=== PATIENT | male | born 1970 | race Caucasian/White ===

== ENCOUNTER 2022-01-27 16:21 | Emergency (ER) | payer MEDICAID, SELFPAY ==
--- NOTE | ~2022-01-27 | CT_ITS ---
EXAMINATION: CT thoracic lumbar wo con DATE: 01/27/2022 17:04 INDICATION: fall, back pain . TECHNIQUE: Computed tomography (CT) of the thoracic and lumbar spine was performed without intravenou s contrast. Automated exposure control and iterative reconstruction technique were employed. The dose -length product was 2252.30 mGy-cm. COMPARISON: None. FINDINGS: Thoracic spine: Thoracic vertebral bodies are aligned. Thoracic vertebral body heights maintained. Mi ld multilevel degenerative disc changes and marginal osteophytosis. Lumbar spine: 5 nonrib-bearing lumbar-type vertebral bodies. Pedicles intact. 3 mm anterolisthesis of L5 on S1, otherwise normal vertebral body alignment. Vertebral body heights preserved. Multilevel mi ld disc space narrowing and marginal osteophytosis, including bridging lateral osteophyte formation. Bilateral L5 pars defects. IMPRESSION: 1. No acute fracture or traumatic malalignment detected in the thoracic or lumbar spine. Reviewed, dictated and finalized at location K. IMPRESSION: 1. No acute fracture or traumatic malalignment detected in the thoracic or lumb ar spine.
[2022-01-27 16:23] VITALS: BP 157/89; PULSE 106; RESP 18; TEMP 36.4; O2SAT 99
--- NOTE | 2022-01-27 16:29 | ED.FALL ---
HPI - Fall General Chief Complaint: Fall Stated Complaint: fall Time Seen by Provider: 01/27/22 16:29 Source: patient Mode of arrival: ambulatory Limitations: no limitations History of Present Illness HPI Narrative: Patient is a 51-year-old male with history of COPD, incarcerated hernia with repair in 2014, presenting to the emergency department for evaluation of back pain. Patient reports on Saturday evening he slipped in the driveway while walking, causing him to fall onto a cinder block. Patient reports the left side of his back struck the cinderblock with immediate pain. Patient reports severe, sharp pain that is exacerbated with movement since that time. He denies upper chest pain, lightheadedness, dizziness or any prodromal symptoms prior to the fall. He denies head trauma or loss of conscious. He is not on any anticoagulation. Patient denies saddle anesthesia, focal weakness or numbness. He report pain is mainly located in the left lower back. Pt denies any ripping or tearing sensation to the flank. He denies frontal abdominal pain. No nausea, vomiting. Related Data Allergies Allergy/AdvReac Type Severity Reaction Status Date / Time morphine Allergy Unknown Unknown Verified 01/27/22 16:35 tramadol Allergy Unknown Unknown Verified 01/27/22 16:35 Review of Systems Review of Systems: CONSTITUTIONAL: Denies fever, chills, or sweats. EYES: Denies visual changes, redness, or discharge. ENT: Denies rhinorrhea, congestion, sore throat, or otalgia. CARDIOVASCULAR: Denies chest pain, palpitations, or edema. RESPIRATORY: Denies cough or dyspnea. GASTROINTESTINAL: Denies abdominal pain, nausea, vomiting, or diarrhea. GENITOURINARY: Denies dysuria or hematuria. SKIN: Denies rash or itching. MUSCULOSKELETAL: Left back pain without other joint pain or myalgia NEUROLOGIC: Denies headache, numbness, or weakness. [facility] Past Medical History Medical History (Updated 01/27/22 @ 17:53 by Shavonne Ingram MD) Abdominal abscess COPD (chronic obstructive pulmonary disease) Incarcerated hernia Social History Social History Smoking status: Heavy tobacco smoker Alcohol intake: never Exam Narrative: GENERAL: Awake, alert, conversant HEAD: Normocephalic, atraumatic. EYES: PERRLA and EOMI. ENT: Nares clear, no rhinorrhea or epistaxis. Mucous membranes moist. NECK: Supple. No midline cervical spine tenderness. No stepoffs or deformities. CHEST: No respiratory distress, breathing even and non labored HEART: Regular rate, sinus rhythm ABDOMEN:Non distended, non tender Thorax: Left SI joint tenderness on exam, no midline thoracic or lumbar tenderness. EXTREMITIES: Normal range of motion. No edema. + Straight leg raise test on the left which reproduces pain. SKIN: Warm, dry, no rash.No ecchymoses. NEURO:No focal deficits. Alert and oriented x3. Intact EHL/FHL. Course Vital Signs Vital signs: Vital Signs Temperature 36.4 C 01/27/22 16:23 Pulse Rate 106 H 01/27/22 16:23 Respiratory Rate 18 01/27/22 16:23 Blood Pressure 157/89 H 01/27/22 16:23 Pulse Oximetry 99 01/27/22 16:23 Temperature 36.4 C 01/27/22 16:23 Pulse Rate 106 H 01/27/22 16:23 Respiratory Rate 18 01/27/22 16:23 Blood Pressure 157/89 H 01/27/22 16:23 Pulse Oximetry 99 01/27/22 16:23 MDM - Fall MDM Narrative Medical decision making narrative: Given History and Exam the patient appears to be at low risk for Spinal Cord Compression Syndrome, Vertebral Malignancy/Mets, Acute Spinal Fracture, Vertebral Osteomyelitis, Epidural Abscess, Infected or Obstructing Kidney Stone. Their presentation appears most likely to be secondary to non-emergent musculoskeletal etiology vs non-emergent disc herniation. Pain is reproducible, and patient has no other high risk factors such as history of malignancy, weight loss, infectious symptoms. ED Workup: Labwork for outpatient follow up at this time. Pt CT imaging is reassuring. Pt without oth
[2022-01-27] MEDS: ACETAMINOPHEN 500 MG TABLET 1000 MG PO (17:09)
[2022-01-27] MEDS: diazePAM (*CRX) 5 MG TABLET PO (17:09)
[2022-01-27] MEDS: KETOROLAC (*BKC) 60 MG/2 ML VIAL 30 MG IM (17:10)
== END 2022-01-27 18:10 | disposition home or self-care (01) ==
PROVIDERS: Emergency Provider Emergency Medicine; PCP Physician Assistant
DX: S33.5XXA Sprain of ligaments of lumbar spine, initial encounter (principal); W01.198A Fall on same level from slipping, tripping and stumbling with subsequent striking against other object, initial encounter; J44.9 Chronic obstructive pulmonary disease, unspecified; F17.200 Nicotine dependence, unspecified, uncomplicated
CPT/HCPCS: 72128; 72131; 96372; 99284; A9270; J1100; J1885

== ENCOUNTER 2022-06-18 19:02 | Emergency (ER) | payer OTHER, SELFPAY ==
--- NOTE | ~2022-06-18 | XR_ITS ---
EXAMINATION: XR ribs RT 2V w CXR 2V Exam Date/Time: 06/18/2022 20:15 CDT HISTORY: fall, R sided thoracic pain under nipple Comparison: 05/26/2017, 04/29/2017. RESULT: Lines, tubes, and devices: None. Lungs and pleura: Clear. Cardiomediastinal silhouette: Stable. Other: No acute osseous or upper abdominal finding. IMPRESSION: No acute cardiopulmonary process. No acute osseous finding in the right ribs Reviewed, dictated and finalized at location K.
[2022-06-18 19:29] VITALS: BP 134/88; PULSE 92; RESP 18; TEMP 36.5; O2SAT 97
[2022-06-18 19:52] VITALS: BP 144/82; PULSE 95; O2SAT 97
[2022-06-18 19:56] VITALS: O2SAT 98
--- NOTE | 2022-06-18 20:13 | ED.FALL ---
HPI - Fall General Chief Complaint: Fall <RICHARDSON Tomas Last Filed: 06/19/22 01:13> Stated Complaint: R. rib pain <RICHARDSON Tomas Last Filed: 06/19/22 01:13> Time Seen by Provider: 06/18/22 19:45 <RICHARDSON Tomas Last Filed: 06/19/22 01:13> History of Present Illness HPI Narrative: 51-year-old male here for evaluation of right-sided rib pain after a fall several days ago. Patient states that he was walking in his garage when he tripped on a slab of concrete, causing him to fall onto his right side. He denies head injury or loss of consciousness. Since then, he has been experiencing right-sided pain at the site, worse with deep breaths and movement of his thorax. He denies any difficulty breathing, hemoptysis, shortness of breath, chest pain. He has not attempted any pain medication for his symptoms. <RICHARDSON Tomas Last Filed: 06/19/22 01:13> Related Data Allergies/Adverse Reactions: Allergies Allergy/AdvReac Type Severity Reaction Status Date / Time morphine Allergy Unknown Unknown Verified 06/18/22 19:51 tramadol Allergy Unknown Unknown Verified 06/18/22 19:51 <RICHARDSON Tomas Last Filed: 06/19/22 01:13> Review of Systems Review of Systems: Gen.: Denies fevers or chills Eyes: Denies eye pain or visual change ENT: Denies congestion Respiratory: Denies shortness of breath or cough CV: Denies chest pain or palpitations GI: Denies abdominal pain nausea, emesis or diarrhea denies burning, urgency, frequency or hematuria Musculoskeletal: Reports right-sided rib pain. Denies back pain or muscle pain Neuro: Denies numbness, tingling, weakness or focal weakness Skin: Denies rash Except as documented, all other systems reviewed and negative <RICHARDSON Tomas Last Filed: 06/19/22 01:13> [facility] Past Medical History Medical History: Medical History Abdominal abscess COPD (chronic obstructive pulmonary disease) Incarcerated hernia <Bonnie Bender PA-C - Last Filed: 06/19/22 01:13> Social History Social History: Social History Smoking status: Heavy tobacco smoker Alcohol intake: never <Bonnie Bender PA-C - Last Filed: 06/19/22 01:13> Exam Narrative: APPEARANCE: Well appearing, no pain in distress, well-nourished. Head: Normocephalic and atraumatic. EYES: PERRLA/EOMI, conjunctivae clear NOSE: No nasal drainage EARS: External ear normal in appearance THROAT: Oropharynx is clear. Mucous membranes are moist. NECK: Supple. No adenopathy, no masses. RESPIRATORY: Airway patent, respirations nonlabored. Clear to auscultation bilaterally, no rales, rhonchi, wheezing. CARDIOVASCULAR: Regular rate and rhythm without murmurs, rubs, or gallops. ABDOMINAL: Normoactive bowel sounds. Soft, nontender, nondistended. No rebound tenderness or guarding. MUSCULOSKELETAL: No obvious deformity to chest. No flail chest noted. No overlying ecchymosis to area of pain. Patient is tender along the lateral aspects of the ribs 8/9 on the right side. NEURO: Normal speech. No focal neurologic deficits. SKIN: Skin is warm and dry. No rashes. PSYCHIATRIC: Normal affect/mood. 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 I agree with the assessment and plan as documented. <Gabriel Quezada MD - Last Filed: 06/20/22 12:39> Vital Signs Vital signs: Vital Signs Temperature 97.7 F 06/18/22 19:29 Pulse Rate 92 06/18/22 19:29 Respiratory Rate 18 06/18/22 19:29 Blood Pressure 134/88 06/18/22 19:29 Pulse Oximetry 97 06/18/22 19:29 Oxygen Delivery Room Air 06/18/22 19:29 Temperature 97.7 F 06/18/22 19:29 Pulse Rate 88 06/18/22 22:57 Respiratory Rate 18 06/18/22 22:57 Blood Pressure 150/80 H 06/18/22
[2022-06-18] MEDS: LIDOCAINE 5% PATCH 1 PATCH TRANSDERM (20:21)
[2022-06-18] MEDS: KETOROLAC 30 MG/ML VIAL (*BKC) IM (20:21)
[2022-06-18] MEDS: methocarbamoL 500 MG TABLET PO (20:21)
[2022-06-18] MEDS: ACETAMINOPHEN 325 MG TABLET 650 MG PO (22:39)
[2022-06-18 22:57] VITALS: BP 150/80; PULSE 88; RESP 18; O2SAT 96
== END 2022-06-18 23:05 | disposition home or self-care (01) ==
PROVIDERS: Emergency Provider Preventive Medicine Aerospace Medicine; PCP Physician Assistant
DX: R07.81 Pleurodynia (principal); J44.9 Chronic obstructive pulmonary disease, unspecified; F17.200 Nicotine dependence, unspecified, uncomplicated; W18.09XA Striking against other object with subsequent fall, initial encounter
CPT/HCPCS: 71046; 71100; 96372; 99283; A9270; J1885

== ENCOUNTER 2023-06-12 19:13 | Emergency (ER) | payer OTHER, SELFPAY ==
[2023-06-12 19:17] VITALS: BP 141/76; PULSE 104; RESP 15; TEMP 36.3; O2SAT 98
--- NOTE | 2023-06-13 00:43 | ED.GENADULT ---
HPI - General Adult General Chief complaint: Skin/Abscess/Foreign Body Stated complaint: hernia in groin area Time Seen by Provider: 06/13/23 00:35 History of Present Illness HPI narrative: This is a 52-year-old male presenting ED with chief complaint of hernia. Over last 3 weeks. Patient has noticed that he has had a left inguinal hernia. He has been able to reduce it. He has no abdominal distention, nausea vomiting or evidence of small-bowel obstruction. Afebrile. Patient has seen Dr. Antonio Nazario in the past. Related Data Allergies Allergy/AdvReac Type Severity Reaction Status Date / Time morphine Allergy Unknown Unknown Verified 06/18/22 19:51 tramadol Allergy Unknown Unknown Verified 06/18/22 19:51 [facility] Past Medical History Medical History Abdominal abscess COPD (chronic obstructive pulmonary disease) Incarcerated hernia Social History Social History Smoking status: Heavy tobacco smoker Alcohol intake: never Exam Narrative: APPEARANCE: No apparent distress. Head: atraumatic. EYES: EOMI, NOSE: Atraumatic NECK: Trachea midline RESPIRATORY: No increased rate of breathing, CTAB CARDIOVASCULAR: RRR, ABDOMINAL: Soft, nontender. No palpable hernia in the left inguinal region. MUSCULOSKELETAl: No obvious deformities NEURO: Alert. Moving 4/4 extremities SKIN:: Warm, dry. Normal color PSYCHIATRIC: Normal affect Course Vital Signs Vital signs: Vital Signs Temperature 97.3 F L 06/12/23 19:17 Pulse Rate 104 H 06/12/23 19:17 Respiratory Rate 15 06/12/23 19:17 Blood Pressure 141/76 H 06/12/23 19:17 Pulse Oximetry 98 06/12/23 19:17 Temperature 97.3 F L 06/12/23 19:17 Pulse Rate 104 H 06/12/23 19:17 Respiratory Rate 15 06/12/23 19:17 Blood Pressure 141/76 H 06/12/23 19:17 Pulse Oximetry 98 06/12/23 19:17 Medical Decision Making [facility] Narrative Medical decision making narrative: -Course: 52-year-old male presenting with a left inguinal hernia. He has been reducing it on his own. no concerning findings on exam such as nausea vomiting abdominal pain or evidence of bowel obstruction. Patient would like a referral to Antonio Nazaroi who has repaired his hernias in the past. Patient was discharged with return precautions for incarcerated/strangulated hernia. 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 -RX oxycodone 5 mg Vital Signs Vital Signs: Vital Signs Temperature 97.3 F L 06/12/23 19:17 Pulse Rate 104 H 06/12/23 19:17 Respiratory Rate 15 06/12/23 19:17 Blood Pressure 141/76 H 06/12/23 19:17 Pulse Oximetry 98 06/12/23 19:17 Temperature 97.3 F L 06/12/23 19:17 Pulse Rate 104 H 06/12/23 19:17 Respiratory Rate 15 06/12/23 19:17 Blood Pressure 141/76 H 06/12/23 19:17 Pulse Oximetry 98 06/12/23 19:17 Discharge Plan Discharge Clinical Impression: Hernia Patient Disposition: Home, Self-Care Condition: Stable Instructions: Antibiotic Form, Inguinal Hernia (ED) Additional Instructions: Please return to the emergency department if you are unable to reduce your hernia, you develop nausea vomiting, severe abdominal pain or are unable to pass gas. Prescriptions: New oxycodone 5 mg capsule 5 mg PO Q6H PRN (Reason: pain) Qty: 14 0RF No Action methocarbamol 500 mg tablet 500 mg PO HS Qty: 10 0RF lidocaine [Lidoderm] 5 % adhesive patch,medicated 1 patch topical DAILY Qty: 15 0RF Rx Instructions: leave on most painful area for up to 12 hrs i
[2023-06-13 00:59] VITALS: BP 138/82; PULSE 99; RESP 15; O2SAT 99
== END 2023-06-13 01:00 | disposition home or self-care (01) ==
PROVIDERS: Emergency Provider Emergency Medicine; PCP Physician Assistant
DX: K46.9 Unspecified abdominal hernia without obstruction or gangrene (principal); J44.9 Chronic obstructive pulmonary disease, unspecified; F17.200 Nicotine dependence, unspecified, uncomplicated
CPT/HCPCS: 99283

== ENCOUNTER 2023-08-26 10:31 | Outpatient (CLI) | payer OTHER, SELFPAY ==
--- NOTE | ~2023-08-26 | XR_ITS ---
Clinical Indication: Preoperative evaluation PA and lateral views of the chest: Comparison: 06/18/2022 Findings: The lungs are clear, without evidence of focal consolidation or pleural effusion. Cardiome diastinal silhouette is within normal limits. Fractures of the posterior right sixth and seventh ribs are present, somewhat age indeterminate. Probable chronic fracture deformity of the right fifth rib. . Impression: Clear lungs. Age-indeterminate fractures of the right fifth, sixth, seventh ribs, as above. Correlate for point te nderness or recent trauma. Reviewed, dictated and finalized at location . IC TRANSPORTATION INSPECTOR Impression: Clear lungs. Age-indeterminate fractures of the right fifth, sixth, seventh ribs, as above. Correlate for point tenderness or recent trauma.
--- NOTE | 2023-08-26 10:30 | ECG_ITS ---
Measurements Intervals [place] Rate: 89 P: 32 AR: 158 QRS: 15 QRSD: 89 T: 56 QT: 355 QTc: 432 Interpretive Statements SINUS RHYTHM NORMAL ECG NO PREVIOUS ECG AVAILABLE FOR COMPARISON Electronically Signed On 08-26-2023 17:14:54 [employer] by Gonzales Hunt M.D.
[2023-08-26 11:08] LABS: Basophils Percent Auto 0.4 % (0.2-1.2); Eosinophils Absolute Auto 0.4 K/mm3 (0-0.3); Eosinophils Percent Auto 4.2 % (0-4.4); Hemoglobin 12.9 g/dL (14.0-18.0); Immature Granulocyte Absolute 0.03 K/mm3 (0.00-0.031); Immature Granulocyte Percent A 0.3 % (0-0.5); Lymphocytes Absolute Auto 2.05 K/mm3 (0.9-3.2); Lymphocytes Percent Auto 20.7 % (18.3-44.2); Mean Corpuscular Hemoglobin 29.6 pg (26-34); Mean Corpuscular Volume 98.6 fl (80-100); Mean Platelet Volume 10.1 fl (7.4-10.4); Monocytes Absolute Auto 0.8 K/mm3 (0.1-0.6); Neutrophils Absolute Auto 6.6 K/mm3 (1.3-6.7); Neutrophils Percent Auto 66.4 % (45.5-73.1); Platelet Count Result 310 k/mm3 (150-375); Red Blood Count 4.36 M/mm3 (4.6-6.20); Red Cell Distribution Width 13.1 % (11.5-14.5); White Blood Count 9.9 K/mm3 (4.5-10.0)
[2023-08-26 11:15] LABS: Appearance Urine Clear (Clear); Bacteria Urine None Seen /hpf; Bilirubin Urine Negative (Negative); Blood Urine Negative (Negative); Color Urine Yellow (Yellow); Glucose Urine UA Negative (Negative); Ketones Urine Trace mg/dL (Negative); Leukocyte Esterase Ur Negative LEU/UL (NEGATIVE); Nitrate Urine Negative (Negative); Protein Urine Trace mg/dL (Negative); Specific Grav Ur 1.023 (1.001-1.035); Squamous Epithelial Cell Urine None seen /hpf (Few); WBC Urine 0-5 /hpf (0-3)
[2023-08-26 11:17] LABS: Add Urine Microscopic? YES
[2023-08-26 11:29] LABS: Anion Gap 5 mmol/L (8-16); Blood Urea Nitrogen 15 mg/dL (9-20); Calcium 9.1 mg/dL (8.4-10.2); Carbon Dioxide 32 mmol/L (22-30); Chloride 102 mmol/L (98-107); Estimated Glomerular Filt Rate > 60; Glucose 145 mg/dL (65-110); Sodium 139 mmol/L (137-145)
== END 2023-08-26 10:32 | disposition home or self-care (01) ==
LOC: ANHSURGERY 10:33
PROVIDERS: PCP Physician Assistant; Visit Provider Surgery
DX: Z01.818 Encounter for other preprocedural examination (principal); K40.20 Bilateral inguinal hernia, without obstruction or gangrene, not specified as recurrent
CPT/HCPCS: 36415; 71046; 80048; 81001; 85025; 86850; 86900; 86901; 93005

== ENCOUNTER 2023-08-28 00:11 | Day surgery (SDC) | payer OTHER, SELFPAY ==
[2023-08-22 14:52] VITALS: BMI 38.3
--- NOTE | 2023-08-22 14:57 | PC.NURSE ---
Report to the Outpatient Waiting Room, entrance under the green pavilion located off [facility], at time 6:00 on date 08/28/23. Planned Procedure Time: 8:00. Time changes happen often and if your time is changed the preop area will call you the afternoon before. - You and your visitor will be asked to self-screen and do not enter if you have any COVID symptoms. - A mask is optional within the hospital at this time. Patients may have clear liquids (water, carbonated beverages, clear teas, apple juice) until 3 hours prior to surgery (5:00) with a maximum of 20 ounces. - No food from midnight until time of surgery Take the following medications with a SIP of water the morning of surgery: NONE DO NOT STOP ANY OF YOUR OTHER PRESCRIPTION MEDICATIONS PRIOR TO SURGERY ?EXCEPT THE FOLLOWING Medications to discontinue per physician: N/A Date to take last dose: N/A Please no make-up, nail bangladeshi, hairspray, perfume, deodorant, or body powder the day of surgery. No jewelry (including any body piercings) or valuables the day of surgery, leave them at home. Please take a shower or bath the night before, or the morning of, surgery with an antibacterial soap. Wear comfortable, loose fitting clothing. - Jewelry must be removed prior to entering the operating room. Rings and piercings that are not removed may be cut off. - The hospital will not accept responsibility for valuables. - Please leave all valuables, including medications, at home the day of surgery. If you are going home after surgery, a licensed truck driver supervisor must drive you home. - NO public transportation without another adult if you receive anesthesia. - We recommend that an adult stay with you for 24 hours following discharge. - We also recommend that you do not drive, make important decision, drink alcoholic beverages, or take any drugs that were not prescribed by your health care provider for at least 24 hours after your discharge time. Follow any additional instructions given to you from your surgeon. If you or anyone in your household have experienced Covid symptoms in the past week, please notify your surgeon or the nurse liaison at the phone number below for possible testing. Telephone instructions given to PT - NYDIA HOWARD and asked if any additional questions and then verbalized understanding. Patient advised to call surgeon office or pre surgery nurse liaison [phone] if any additional questions.
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
== END 2023-08-28 06:50 | disposition home or self-care (01) ==
PROVIDERS: PCP Physician Assistant; Visit Provider Surgery
PROC: 8E0Y4CZ Robotic Assisted Procedure of Lower Extremity, Percutaneous Endoscopic Approach (ICD-10-PCS; CPT 49650; principal; 2023-08-28 08:00)
DX: K40.20 Bilateral inguinal hernia, without obstruction or gangrene, not specified as recurrent (principal)
CPT/HCPCS: 99212; G0463

== ENCOUNTER 2023-12-02 08:26 | Outpatient (CLI) | payer OTHER, SELFPAY ==
--- NOTE | 2023-12-02 08:31 | ECG_ITS ---
Measurements Intervals [place] Rate: 86 P: 60 [place]: 159 QRS: 18 QRSD: 98 T: 61 QT: 364 QTc: 436 Interpretive Statements SINUS RHYTHM EARLY PRECORDIAL R/S TRANSITION BASELINE ARTIFACT- I, II, III, AVR, AVL, AVF BORDERLINE ECG COMPARED TO ECG 08/26/2023 10:56:47 NO SIGNIFICANT CHANGES Electronically Signed On 12-02-2023 9:31:08 CDT by Juan M Dasilva D.O.
[2023-12-02 09:12] LABS: Basophils Percent Auto 0.5 % (0.2-1.2); Eosinophils Absolute Auto 0.3 K/mm3 (0-0.3); Hematocrit 44.3 % (42.0-52.0); Hemoglobin 13.5 g/dL (14.0-18.0); Immature Granulocyte Absolute 0.02 K/mm3 (0.00-0.031); Immature Granulocyte Percent A 0.2 % (0-0.5); Lymphocytes Absolute Auto 2.24 K/mm3 (0.9-3.2); Lymphocytes Percent Auto 27.3 % (18.3-44.2); Mean Corpuscular HGB Conc 30.5 g/dl (32-36); Mean Corpuscular Hemoglobin 29.2 pg (26-34); Mean Corpuscular Volume 95.7 fl (80-100); Mean Platelet Volume 10.2 fl (7.4-10.4); Monocytes Absolute Auto 0.6 K/mm3 (0.1-0.6); Monocytes Percent Auto 7.8 % (2.6-8.5); Neutrophils Percent Auto 61.2 % (45.5-73.1); Platelet Count Result 292 k/mm3 (150-375); Red Blood Count 4.63 M/mm3 (4.6-6.20); Red Cell Distribution Width 13.6 % (11.5-14.5); White Blood Count 8.2 K/mm3 (4.5-10.0)
[2023-12-02 09:26] LABS: Anion Gap 2 mmol/L (8-16); Blood Urea Nitrogen 19 mg/dL (9-20); Calcium 9.2 mg/dL (8.4-10.2); Carbon Dioxide 34 mmol/L (22-30); Chloride 103 mmol/L (98-107); Estimated Glomerular Filt Rate > 60; Glucose 103 mg/dL (65-110); Potassium 4.9 mmol/L (3.4-5.0); Sodium 139 mmol/L (137-145)
== END 2023-12-02 08:27 | disposition home or self-care (01) ==
LOC: ANHSURGERY 08:29
PROVIDERS: PCP Physician Assistant; Visit Provider Surgery
DX: Z01.818 Encounter for other preprocedural examination (principal); K40.20 Bilateral inguinal hernia, without obstruction or gangrene, not specified as recurrent
CPT/HCPCS: 36415; 80048; 85025; 86850; 86900; 86901; 93005

== ENCOUNTER 2023-12-04 00:21 | Day surgery (SDC) | payer OTHER, SELFPAY ==
[2023-11-27 10:26] VITALS: BMI 38.9
--- NOTE | 2023-11-27 10:28 | PC.NURSE ---
Report to the Outpatient Waiting Room, entrance under the green pavilion located off [facility], at time 6:00 on date 12/04/23. Planned Procedure Time: 8:00. Time changes happen often and if your time is changed the preop area will call you the afternoon before. - You and your visitor will be asked to self-screen and do not enter if you have any COVID symptoms. - A mask is optional within the hospital at this time. Patients may have clear liquids (water, carbonated beverages, clear teas, apple juice) until 3 hours prior to surgery (5:00) with a maximum of 20 ounces. - No food from midnight until time of surgery Take the following medications with a SIP of water the morning of surgery: NONE DO NOT STOP ANY OF YOUR OTHER PRESCRIPTION MEDICATIONS PRIOR TO SURGERY ?EXCEPT THE FOLLOWING Medications to discontinue per physician: N/A Date to take last dose: N/A Please no make-up, nail vincentian, hairspray, perfume, deodorant, or body powder the day of surgery. No jewelry (including any body piercings) or valuables the day of surgery, leave them at home. Please take a shower or bath the night before, or the morning of, surgery with an antibacterial soap. Wear comfortable, loose fitting clothing. - Jewelry must be removed prior to entering the operating room. Rings and piercings that are not removed may be cut off. - The hospital will not accept responsibility for valuables. - Please leave all valuables, including medications, at home the day of surgery. If you are going home after surgery, a licensed straddle bug driver must drive you home. - NO public transportation without another adult if you receive anesthesia. - We recommend that an adult stay with you for 24 hours following discharge. - We also recommend that you do not drive, make important decision, drink alcoholic beverages, or take any drugs that were not prescribed by your health care provider for at least 24 hours after your discharge time. Follow any additional instructions given to you from your surgeon. If you or anyone in your household have experienced Covid symptoms in the past week, please notify your surgeon or the nurse liaison at the phone number below for possible testing. Telephone instructions given to MARISABEL STAFFORD and asked if any additional questions and then verbalized understanding. Patient advised to call surgeon office or pre surgery nurse liaison [phone] if any additional questions.
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
[2023-12-04] VITALS (10 sets, daily range): BP systolic 119–171; BP diastolic 68–100; PULSE 70–101; RESP 15–22; TEMP 36.3–36.9; O2SAT 94–100
--- NOTE | ~2023-12-04 | CT_ITS ---
EXAMINATION: CTA chest PE abdomen pel DATE: 12/07/2023 13:18 INDICATION: Postoperative fever TECHNIQUE: Computed tomography angiography (CTA) of the chest, abdomen and pelvis was performed with 100 mL Omnipaque-350 intravenous contrast timed to evaluate the pulmonary arteries. Coronal maximum i ntensity projection 3D-reconstructions were created by the technologist. Automated exposure control a nd iterative reconstruction technique were employed. Exam dose: 3620.80 mGy-cm total exam DLP. COMPARISON: 08/26/2023 2 view chest 05/26/2017 CT abdomen pelvis 04/29/[address] CHEST FINDINGS: No thoracic aortic aneurysm or dissection. No hilar or mediastinal mass lesion or lymphadenopathy. Heart size is within normal range. No pericardial or pleural effusion. Bilateral dependent lower lobe atelectasis. Mild right apical linear scarring or atelectasis. Mild subcutaneous emphysema of the chest wall. No pneumothorax is detected. Healing posterolateral right eighth rib fracture. CT ABDOMEN PELVIS FINDINGS: Small sliding hiatal hernia. Normal morphology of the adrenal glands. The liver, gallbladder, spleen, pancreas are unremarkable. The gallbladder is unremarkable. No bile duct or pancreatic duct dilatation. 2.5 cm left renal cyst. There is patchy variable contrast enhancement of the kidneys; consider possible acute pyelonephritis. No urinary tract calculus or hydroureteronephrosis. Normal caliber of the abdominal aorta. No intraperitoneal or retroperitoneal or pelvic mass lesion or adenopathy or ascites. Normal appendix. Diverticulosis of colon; no CT evidence of diverticulitis. No bowel obstruction, bow el wall thickening, pneumatosis or intraperitoneal free air. There is subcutaneous emphysema of the abdominal wall and proximal thighs. Moderate anterior wedge compression fracture deformity of T11. Bilateral L5 pars interarticularis defects with grade 1 anterolisthesis at L5-S1. IMPRESSION: Subcutaneous emphysema of the chest and to a greater extent abdominal mcgee; no pneumoth orax Bilateral dependent lower lobe atelectasis Small sliding hiatal hernia Patchy contrast enhancement of both kidneys which may indicate acute pyelonephritis Normal appendix Diverticulosis of the colon; no evidence of diverticulitis T11 compression fracture deformity Bilateral L5 pars interarticularis defects with grade 1 anterolisthesis of L5-S1 Reviewed, dictated and finalized at [facility]. Reviewed, dictated and finalized at [facility]. IMPRESSION: Subcutaneous emphysema of the chest and to a greater extent abdomi nal mcgee; no pneumothorax Bilateral dependent lower lobe atelectasis Small sliding hiatal hernia Patchy contrast enhancement of both kidneys which may indicate acute pyelonephr itis Normal appendix Diverticulosis of the colon; no evidence of diverticulitis T11 compression fracture deformity Bilateral L5 pars interarticularis defects with grade 1 anterolisthesis of L5-S 1
[2023-12-04] MEDS: LACTATED RINGERS 1,000 ML 30 ML IV CONT ×3 (06:30→14:02)
--- NOTE | 2023-12-04 07:26 | WPDHPUPDATE1 ---
History and Physical Update Update Date/Time: 12/04/23 07:26 History and Physical has been reviewed, including an updated exam of the patient. There are NO changes in the patient's condition. Risks, benefits, and alternatives have been discussed and questions answered. Patient agrees to proceed with procedure.
[2023-12-04] MEDS: ACETAMINOPHEN 500 MG TABLET 1000 MG PO (08:00)
[2023-12-04] MEDS: KETOROLAC 15 MG/ML VIAL (*BKC) IV PUSH (08:00)
--- NOTE | 2023-12-04 08:04 | WPDANESEPPF ---
Anes - Initial Pre Proc Eval Procedure: Operation Date: 12/04/23 08:00 Proposed Procedures p Robotic Laparoscopic Bilateral Inguinal Hernia Repair with Mesh - Antonio Nazario MD Date/Time: 12/04/23 08:04 Surgeon: Antonio Nazario MD Pre Op Diagnosis: bilat inguinal hernia Patient Data Age: 53 Gender: M Height: 1.79 m Weight: 126.7 kg Last Vital Signs Temp 98.5 F 12/04/23 07:55 Pulse 100 12/04/23 07:55 Resp 18 12/04/23 07:55 BP 171/100 H 12/04/23 07:55 Pulse Ox 100 12/04/23 07:55 O2 Del Method Room Air 12/04/23 07:55 Allergies Allergy/AdvReac Type Severity Reaction Status Date / Time morphine Allergy Unknown Unknown Verified 12/04/23 07:54 tramadol AdvReac Unknown Nausea Verified 12/04/23 07:54 Home Medications Medication Instructions Recorded Confirmed Type lisinopril 30 mg tablet 30 mg PO DAILY 06/27/23 12/04/23 History Patient hx anesthesia problems: none Family hx anesthesia problems: none Results Review: All pre-operative results and documents have been reviewed as part of the pre-operative evaluation. [facility] Past Medical History Medical History Abdominal abscess Hypertension Incarcerated hernia Surgical History Surgical History History of incisional hernia repair Incarcerated incisional hernia repair with mesh 2014 Social History Social History Smoking packs per day: 0.5 Smoking cigarettes per day: 10.0 Years smoked: 35 Smoking pack-years: 17.50 Smoking status: Current every day smoker Tobacco type: cigarettes Alcohol intake: former Substance use: former Substance use type: marijuana Living arrangements: with family Occupation/Education: retired Spiritual care concerns: No Anes - Eval Final PreProcedure Day of Procedure 12/04/23 08:04 Patient weight: obese Heart: regular rate and rhythm Lungs: clear to auscultation Airway: Mallampati scale class III (poor dentition) Neurological: alert and oriented Last oral intake: >/= 8 hours ASA classification: III Emergent: no Anesthetic plan: proceed Anesthesia type and monitoring: general ETT and standard monitoring Results Review: All pre-operative results and documents have been reviewed as part of the pre-operative evaluation. Informed Consent: The patient's anesthetic plan and its attendant risks and benefits were discussed with the patient/family/POA. Questions were solicited and answers provided to the satisfaction of the patient/family/POA.
[2023-12-04] MEDS: ceFAZolin 3 GM/D5W 100 ML 100 ML IVPB (08:34)
[2023-12-04] MEDS: BUPIVACAINE/EPINEPHRINE 0.5% 30 ML VIAL INFILTRATE (09:21)
[2023-12-04] MEDS: ceFAZolin SODIUM 1 GM VIAL 3 GM IV PUSH (11:41)
[2023-12-04] MEDS: fentaNYL CITRATE INJ (*CRX) 100 MCG/2 ML VIAL 25 MCG IV PUSH ×4 (14:18→15:06)
--- NOTE | 2023-12-04 14:26 | W.PM.PROC2 ---
Procedure Note - Detailed Date of Procedure 12/04/23 Pre-op Diagnosis bilat inguinal hernia Post-op Diagnosis Same (Bilateral inguinal hernias, extensive abdominal adhesions) Procedure Performed Laparoscopic adhesiolysis, robotic laparoscopic adhesiolysis, robotic repair bilateral inguinal hernias with mesh Surgeon Antonio Nazario MD Director Of Outreach Heriberto CARVER Anesthesia General and Local Indications Patient presented to the office last fall with complaints of a left inguinal bulge and discomfort. His exam showed bilateral inguinal hernias. Patient is taken to surgery now for robotic laparoscopic repair of bilateral inguinal hernias Findings There were extensive, difficult adhesions to the anterior abdominal wall from patient's previous surgeries. The mesh from the incarcerated incisional hernia repair done laparoscopically in 2014 was intact but had both omental and small-bowel adhesions. About 90 minutes of the 3-1/2 hour surgery or is spent with the adhesiolysis. Initially, we did this with straight laparoscopy to gain access to the peritoneal cavity and take down primarily omental adhesions. When we had completed this to the point that we could place our robotic trocars, the rest of the adhesiolysis was performed with robotic laparoscopic technique which was considerably safer due to better visualization. The lower abdomen also had small bowel adhesed to the mesh and it was fortunate that this was the area that could be done robotically. The hernia repairs were more difficult as the lower aspect of the mesh was right on the border of where the peritoneal flaps were to be developed. Patient is a long-term smoker and is tissue integrity for the hernia repairs was poor. The left inguinal hernia was an indirect hernia with sigmoid colon in the inguinal canal. The right inguinal hernia was a direct inguinal hernia but had a lipoma of the cord as well. Description of Procedure Patient was taken to surgery and induced into general anesthesia. The abdomen was prepped and draped. Initial trocar was placed in the left subcostal position somewhat laterally. This was then applied Medical 5 mm trocar placed under direct visualization. We were able to gain access to the peritoneal cavity and insufflated the abdomen to 15 cm. Numerous omental adhesions were very close to this trocar. In epigastric trocar was placed under direct visualization. This was another 5 mm trocar. A right upper quadrant 5 mm trocar was placed under direct visualization as well. We then used the epigastric and left-sided trocars to begin the adhesiolysis. This was done with sharp dissection and cautery only when needed. The upper aspect of the adhesiolysis was really only omentum with no adherent bowel noted. About the level of the umbilicus we began running into omental and small-bowel adhesions. The small bowel was adherent to the previously placed mesh. I then placed the 8 mm robotic trocars under direct visualization. We then brought the robot into the field. Patient was placed in steep Trendelenburg. The robotic arms were docked and the camera was placed and targeted. The operating instruments were then positioned appropriately. We started where the small bowel adhesions were particularly dense in the lower abdomen. I then broke scrub and went to the robotic console. As mentioned above, the improve visualization as well as ease of instrument use made freeing these small bowel adhesions to mesh much safer. Many small bowel adhesions were still present and were taken down robotically. Eventually all the adhesions were taken down and we could visualize the bilateral inguinal hernias. Inspecting the inguinal canals, it was apparent that the right inguinal hernia was a direct hernia. The left inguinal hernia was a large indirect hernia with sigmoid colon in the inguinal canal. I was able to reduce the sigmoid colon back into the abdomen but a portion of it was adherent to the pe
--- NOTE | 2023-12-04 15:25 | ADMGEN ---
This patient, Abraham Johnston, was admitted to Medical Room 346-01. Patient/family oriented to hospital policies and general routines including ID bracelet, bed and alarms, visiting hours, pain management, procedures, bathroom and other care routines, personal items, smoking policy, room service/diet, and visiting hours. Information on how to activate the Rapid Response Team has been discussed. Patient/Family are encouraged to report perceived risks to care and to ask questions if they do not understand what they are told or what they should do.
[2023-12-04] MEDS: NICOTINE (*PBKC) 14 MG PATCH 1 PATCH TRANSDERM (15:39)
[2023-12-04] MEDS: LACTATED RINGERS 1,000 ML 80 ML IV CONT (15:40)
[2023-12-04] MEDS: oxyCODONE/ACETAMINOPHEN (*CRX) 10-325 MG TABLET 1 TAB PO ×2 (16:39→22:50)
[2023-12-04] MEDS: HYDROmorphone HCL INJ (*CRX) 1 MG/ML SYR IV PUSH (20:24)
[2023-12-04] MEDS: ENOXAPARIN 30 MG/0.3 ML SYRINGE SUB-Q (20:26)
[2023-12-04] MEDS: FAMOTIDINE 20 MG/2 ML VIAL IV PUSH (20:27)
[2023-12-05 00:18] VITALS: BP 157/88; PULSE 104; RESP 20; TEMP 37; O2SAT 95
[2023-12-05] MEDS: HYDROmorphone HCL INJ (*CRX) 1 MG/ML SYR IV PUSH ×3 (01:59→20:14)
[2023-12-05] MEDS: LACTATED RINGERS 1,000 ML 80 ML IV CONT (04:10)
[2023-12-05 04:16] VITALS: BP 148/81; PULSE 92; RESP 18; TEMP 36.6; O2SAT 100
[2023-12-05] MEDS: oxyCODONE/ACETAMINOPHEN (*CRX) 10-325 MG TABLET 1 TAB PO ×3 (04:43→17:03)
[2023-12-05 06:20] LABS: Hematocrit 36.2 % (42.0-52.0); Hemoglobin 11.1 g/dL (14.0-18.0); Mean Corpuscular HGB Conc 30.7 g/dl (32-36); Mean Corpuscular Hemoglobin 29.6 pg (26-34); Mean Corpuscular Volume 96.5 fl (80-100); Mean Platelet Volume 10.3 fl (7.4-10.4); Platelet Count Result 264 k/mm3 (150-375); Red Blood Count 3.75 M/mm3 (4.6-6.20); Red Cell Distribution Width 14.1 % (11.5-14.5); White Blood Count 9.1 K/mm3 (4.5-10.0)
[2023-12-05 06:39] LABS: Anion Gap 5 mmol/L (4-12); Blood Urea Nitrogen 22 mg/dL (9-20); Calcium 8.3 mg/dL (8.4-10.2); Carbon Dioxide 28 mmol/L (22-30); Chloride 105 mmol/L (98-107); Estimated CRCL calculation 93 ml/min; Estimated Glomerular Filt Rate > 60; Glucose 133 mg/dL (65-110); Potassium 3.9 mmol/L (3.4-5.0); Sodium 138 mmol/L (137-145)
--- NOTE | 2023-12-05 07:46 | WPDANESPN ---
Anes - Prog Note Post-Op Date/Time: 12/05/23 07:46 Cardiovascular status: normal Respiratory status: normal Airway patency: baseline Mental status: baseline Post-Op hydration status: normal Vital Signs: Last Vital Signs Temp 36.6 C 12/05/23 04:16 Pulse 92 12/05/23 04:16 Resp 18 12/05/23 04:16 BP 148/81 H 12/05/23 04:16 Pulse Ox 100 12/05/23 04:16 O2 Del Method Room Air 12/04/23 15:46 O2 Flow Rate 8 12/04/23 14:00 Pain Score (VAS): 11/16 I/O: Intake & Output 12/04/23 12/04/23 12/05/23 15:59 23:59 07:59 Intake Total 708 501 1432 Output Total 75 225 600 Balance 325 15 900 Laboratory Tests 12/05/23 05:44 12/05/23 05:44 12/05/23 05:44 WBC 9.1 RBC 3.75 L Hgb 11.1 L Hct 36.2 L MCV 96.5 MCH 29.6 MCHC 30.7 L RDW 14.1 Plt Count 264 MPV 10.3 Sodium 138 Potassium 3.9 Chloride 105 Carbon Dioxide 28 Anion Gap 5 L BUN 22 H Creatinine 1.10 Estim Creat Clear Calc 93 Estimated GFR > 60 Glucose 133 H Calcium 8.3 L Post-procedural complaints: none Patient Feedback: Patient satisfied with anesthetic care.
--- NOTE | 2023-12-05 07:51 | WPDANESPN ---
Anes - Prog Note Post-Op Date/Time: 12/05/23 07:51 Cardiovascular status: normal Respiratory status: normal Airway patency: baseline Mental status: baseline Post-Op hydration status: normal Vital Signs: Last Vital Signs Temp 36.6 C 12/05/23 04:16 Pulse 92 12/05/23 04:16 Resp 18 12/05/23 04:16 BP 148/81 H 12/05/23 04:16 Pulse Ox 100 12/05/23 04:16 O2 Del Method Room Air 12/04/23 15:46 O2 Flow Rate 8 12/04/23 14:00 Pain Score (VAS): 10/19 I/O: Intake & Output 12/04/23 12/04/23 12/05/23 15:59 23:59 07:59 Intake Total 162 970 0825 Output Total 75 225 600 Balance 325 15 900 Laboratory Tests 12/05/23 05:44 12/05/23 05:44 12/05/23 05:44 WBC 9.1 RBC 3.75 L Hgb 11.1 L Hct 36.2 L MCV 96.5 MCH 29.6 MCHC 30.7 L RDW 14.1 Plt Count 264 MPV 10.3 Sodium 138 Potassium 3.9 Chloride 105 Carbon Dioxide 28 Anion Gap 5 L BUN 22 H Creatinine 1.10 Estim Creat Clear Calc 93 Estimated GFR > 60 Glucose 133 H Calcium 8.3 L Post-procedural complaints: none Patient Feedback: Patient satisfied with anesthetic care.
[2023-12-05] MEDS: FAMOTIDINE 20 MG/2 ML VIAL IV PUSH ×2 (08:12→20:14)
[2023-12-05] MEDS: ENOXAPARIN 30 MG/0.3 ML SYRINGE SUB-Q ×2 (08:12→20:14)
[2023-12-05] MEDS: NICOTINE (*PBKC) 14 MG PATCH 1 PATCH TRANSDERM (08:12)
[2023-12-05] MEDS: lisinopriL 10 MG TABLET 30 MG PO (08:12)
[2023-12-05 09:37] VITALS: BP 150/87; PULSE 81; RESP 18; TEMP 36.6; O2SAT 99
[2023-12-05 14:00] VITALS: BP 131/76; PULSE 88; RESP 20; TEMP 36.5; O2SAT 94
--- NOTE | 2023-12-05 14:45 | PM.PNGS ---
Progress Note: A&P Assessment and Plan (1) Bilateral inguinal hernia: Qualifiers: Obstruction and gangrene presence: without obstruction or gangrene Recurrence: non-recurrent Qualified Code(s): K40.20 - Bilateral inguinal hernia, without obstruction or gangrene, not specified as recurrent Code(s): K40.20 - Bilateral inguinal hernia, without obstruction or gangrene, not specified as recurrent Status: Acute Assessment and Plan: Patient doing well postop day 1. Transition to oral analgesics. Increase activity and walk the halls today. Possibly discharge home tomorrow if he continues to improve. Plan I have discussed the patient's case and plan of care with Dr. Nazario. Subjective Subjective Date/Time Seen: 12/05/23 09:45 Patient reports: tolerating a regular diet, voiding w/o difficulty, flatus and no bowel movement Interval history: Patient doing well this morning. He is tolerating activity and has walked in the halls. He reports incisional soreness that he expected, but no significant other abdominal pain. Denies nausea or vomiting. No issues or complaints at this time. Exam Const: General: comfortable and no acute distress GI: Inspection: non-distended and incision (incisions dry and intact) GI Palp: Yes Soft to palpation, Yes Tenderness to palpation present (GI) (incisional) and No Guarding due to palpation present (GI) Auscultation: normal bowel sounds Neuro: General: moves all extremities and no focal motor deficits Extrem: General: no calf tenderness and no edema Psych: Mental Status: mental status grossly normal Insight: Good insight present (Psych) Objective Data Vital Signs Vital Signs: Vital Signs - 24 hr 12/04/23 15:00 12/04/23 15:46 12/04/23 15:00 Temperature 98.1 F Pulse Rate 91 87 Respiratory Rate 18 16 Blood Pressure 137/77 143/83 H Pulse Oximetry 95 96 Oxygen Delivery Room Air Room Air 12/04/23 15:54 12/04/23 16:54 12/04/23 20:33 Temperature 98.2 F 98.2 F 97.9 F Pulse Rate 80 70 101 H Respiratory Rate 16 16 16 Blood Pressure 150/87 H 153/87 H 140/74 Pulse Oximetry 95 95 94 Oxygen Delivery 12/05/23 00:18 12/05/23 04:16 12/05/23 09:37 Temperature 98.6 F 97.9 F 97.9 F Pulse Rate 104 H 92 81 Respiratory Rate 20 18 18 Blood Pressure 157/88 H 148/81 H 150/87 H Pulse Oximetry 95 100 99 Oxygen Delivery 12/05/23 08:11 12/05/23 14:00 Temperature 97.7 F Pulse Rate 88 Respiratory Rate 20 Blood Pressure 131/76 Pulse Oximetry 94 Oxygen Delivery Room Air Intake/Output Intake/Output: Intake & Output 12/02/23 12/03/23 12/04/23 12/05/23 23:59 23:59 23:59 23:59 Intake Total 640 1980 Output Total 300 600 Balance 340 1380 Meds/Results Medications: Active Medications Generic Name Dose Route Start Last Admin Trade Name Freq PRN Reason Stop Dose Admin Acetaminophen 500 mg 12/04/23 15:09 Acetaminophen 500 Mg Tablet PO Q6H PRN Mild Pain (1-3) or Fever Enoxaparin Sodium 30 mg 12/04/23 21:00 12/05/23 08:12 Enoxaparin 30 Mg/0.3 Ml Syringe SUB-Q 30 mg Q12HR DOUG Administration Famotidine 20 mg 12/04/23 21:00 12/05/23 08:12 Famotidine 20 Mg/2 Ml Vial IV PUSH 20 mg Q12HR DOUG Administration Hydromorphone HCl 1 mg 12/04/23 15:09 12/05/23 08:25 Hydromorphone Hcl Inj (*Crx) 1 Mg/Ml Syr IV PUSH 1 mg Q2H PRN Administration Pain Rated 7-10 Hydromorphone HCl 0.5 mg 12/04/23 15:09 Hydromorphone Hcl Inj (*Crx) 1 Mg/Ml Syr IV PUSH Q2H PRN Pain Rated 4-6 Lactated Ringer's 1,000 mls @ 80 mls/hr 12/04/23 15:09 12/05/23 04:10 Lr - Lactated Ringers Iv IV CONT 80 mls/hr .[id number] DOUG Administration Ibuprofen 800 mg in 200 mls @ 400 mls/hr 12/04/23 15:09 Caldolor 800 Mg/200 Ml IVPB Q6H PRN Pain Rated 1-3 Lisinopril 30 mg 12/05/23 09:00 12/05/23 08:12 Lisinopril 10 Mg Tablet PO 30 mg DAILY DOUG Administration Naloxone HCl 0.1 mg 03
[2023-12-05] MEDS: ONDANSETRON INJ 4 MG/2 ML VIAL IV PUSH ×2 (18:14→22:34)
[2023-12-05 18:44] VITALS: BP 129/70; PULSE 92; RESP 18; TEMP 36.4; O2SAT 93
[2023-12-05 19:44] VITALS: BP 127/64; PULSE 94; RESP 18; TEMP 36.4; O2SAT 99
[2023-12-06 01:48] VITALS: BP 156/98; PULSE 110; RESP 20; TEMP 37.3; O2SAT 94
[2023-12-06] MEDS: IBUPROFEN IV 800 MG/200 ML 800 MG/200 ML BAG 400 MG IVPB (01:53)
[2023-12-06 04:20] VITALS: BP 152/74; PULSE 107; RESP 18; TEMP 37.3; O2SAT 93
[2023-12-06] MEDS: ONDANSETRON INJ 4 MG/2 ML VIAL IV PUSH ×2 (05:49→20:29)
[2023-12-06 06:03] LABS: Hematocrit 37.1 % (42.0-52.0); Mean Corpuscular HGB Conc 29.6 g/dl (32-36); Mean Corpuscular Hemoglobin 29.4 pg (26-34); Mean Corpuscular Volume 99.2 fl (80-100); Mean Platelet Volume 10.1 fl (7.4-10.4); Platelet Count Result 276 k/mm3 (150-375); Red Blood Count 3.74 M/mm3 (4.6-6.20); Red Cell Distribution Width 14.3 % (11.5-14.5)
[2023-12-06 06:18] LABS: Anion Gap 3 mmol/L (4-12); Blood Urea Nitrogen 17 mg/dL (9-20); Calcium 8.5 mg/dL (8.4-10.2); Carbon Dioxide 30 mmol/L (22-30); Chloride 103 mmol/L (98-107); Estimated CRCL calculation 102 ml/min; Estimated Glomerular Filt Rate > 60; Glucose 107 mg/dL (65-110); Potassium 4.4 mmol/L (3.4-5.0); Sodium 136 mmol/L (137-145)
[2023-12-06] MEDS: ENOXAPARIN 30 MG/0.3 ML SYRINGE SUB-Q ×2 (08:03→20:24)
[2023-12-06] MEDS: FAMOTIDINE 20 MG/2 ML VIAL IV PUSH (08:03)
[2023-12-06] MEDS: NICOTINE (*PBKC) 14 MG PATCH 1 PATCH TRANSDERM (08:03)
[2023-12-06] MEDS: lisinopriL 10 MG TABLET 30 MG PO (12:19)
[2023-12-06] MEDS: oxyCODONE/ACETAMINOPHEN (*CRX) 10-325 MG TABLET 1 TAB PO (12:21)
[2023-12-06 15:28] VITALS: BP 131/66; PULSE 95; RESP 19; TEMP 37; O2SAT 90
[2023-12-06] MEDS: FAMOTIDINE 20 MG TABLET PO (20:24)
[2023-12-06] MEDS: ACETAMINOPHEN 500 MG TABLET PO (20:31)
[2023-12-06 22:00] VITALS: O2SAT 93
[2023-12-06 22:30] VITALS: BP 146/94; PULSE 112; RESP 16; TEMP 38.1; O2SAT 94
[2023-12-06] MEDS: IBUPROFEN 600 MG TABLET PO (23:09)
[2023-12-07] VITALS (7 sets, daily range): BP systolic 119–161; BP diastolic 68–93; PULSE 91–101; RESP 18–20; TEMP 37.1–37.5; O2SAT 94–97
[2023-12-07 06:14] LABS: Hematocrit 37.6 % (42.0-52.0); Hemoglobin 11.2 g/dL (14.0-18.0); Mean Corpuscular HGB Conc 29.8 g/dl (32-36); Mean Corpuscular Hemoglobin 29.5 pg (26-34); Mean Corpuscular Volume 98.9 fl (80-100); Mean Platelet Volume 9.9 fl (7.4-10.4); Platelet Count Result 243 k/mm3 (150-375); Red Cell Distribution Width 14.3 % (11.5-14.5); White Blood Count 8.3 K/mm3 (4.5-10.0)
[2023-12-07 06:23] LABS: Anion Gap 3 mmol/L (4-12); Blood Urea Nitrogen 16 mg/dL (9-20); Calcium 8.7 mg/dL (8.4-10.2); Carbon Dioxide 35 mmol/L (22-30); Chloride 100 mmol/L (98-107); Estimated CRCL calculation 112 ml/min; Estimated Glomerular Filt Rate > 60; Glucose 115 mg/dL (65-110); Potassium 4.9 mmol/L (3.4-5.0); Sodium 138 mmol/L (137-145)
[2023-12-07] MEDS: NICOTINE (*PBKC) 14 MG PATCH 1 PATCH TRANSDERM (09:06)
[2023-12-07] MEDS: ENOXAPARIN 30 MG/0.3 ML SYRINGE SUB-Q ×2 (09:06→20:15)
[2023-12-07] MEDS: lisinopriL 10 MG TABLET 30 MG PO (09:06)
[2023-12-07] MEDS: FAMOTIDINE 20 MG TABLET PO ×2 (09:06→20:15)
--- NOTE | 2023-12-07 10:57 | PM.PNGS ---
Progress Note: A&P Assessment and Plan (1) Postoperative fever: Code(s): R50.82 - Postprocedural fever Status: Acute Assessment and Plan: Associated with #2, below. Also has tachycardia. Eating well and no acute abdomen. Bowel sounds are active. Feels to poorly to get out of bed. Usually sleeping when I come by to see him but does awaken. Could be atelectasis but patient very high risk for pneumonia, PE, other complications. Will get CTA of the chest as well as CT scan with contrast abdomen/pelvis. Has black and scrotum which on careful inspection looks to be ecchymosis. Patient admits he had been sitting on his scrotum while having a bowel movement on the commode. (2) Malaise and fatigue: Code(s): R53.81 - Other malaise; R53.83 - Other fatigue Status: Acute Assessment and Plan: As above. Will get testing for COVID influenza and RSV. (3) Bilateral inguinal hernia: Qualifiers: Obstruction and gangrene presence: without obstruction or gangrene Recurrence: non-recurrent Qualified Code(s): K40.20 - Bilateral inguinal hernia, without obstruction or gangrene, not specified as recurrent Code(s): K40.20 - Bilateral inguinal hernia, without obstruction or gangrene, not specified as recurrent Status: Chronic Assessment and Plan: Wounds are healing appropriately. Abdomen is tender but he had multiple trocar sites and an extensive adhesiolysis of the abdomen before we could proceed with bilateral inguinal hernia repair. Aside from the scrotal bruising there is really no scrotal edema and no hematoma seroma in either groin. No ecchymosis of the penis or either groin. Clinically, abdomen and hernia repair appear to be normal postoperative condition. (4) Tobacco use: Code(s): Z72.0 - Tobacco use Status: Chronic Assessment and Plan: On nicotine patch. Chronic tobacco use and lung disease increases risk of pulmonary complications. (5) History of incisional hernia repair: Code(s): Z98.890 - Other specified postprocedural states; Z87.19 - Personal history of other diseases of the digestive system Status: Chronic Assessment and Plan: This and prior surgeries were the source of many anterior abdominal wall adhesions and required adhesiolysis laparoscopically before inguinal hernia repair could be performed. Please see operative note. (6) BMI 39.0-39.9,adult: Code(s): Z68.39 - Body mass index [BMI] 39.0-39.9, adult Status: Chronic Subjective Subjective Date/Time Seen: 12/07/23 10:57 Post Op day: 3 Patient reports: tolerating a regular diet, bowel movement, nausea and fever Interval history: Patient feels worse last night and today. Has had chills as well as been too warm. Does not feel good enough to get out of bed. No particular areas of pain. Does have some nausea but not right now. Has body aches and malaise. Review of Systems Review of Systems: All systems reviewed & are unremarkable except as noted in HPI and below (HPI) Exam Narrative: Patient had fever of 38.1 about 10:30 last night. Nurse reports more fever this morning. Const: General: cooperative, comfortable, no acute distress, lethargic, tired appearing (Somnolent) and obese Orientation/consciousness: patient oriented x3, No confusion and Other orientation findings (Somnolent, tired appearing) Chest: Chest palpation & inspection: normal inspection of the chest, normal palpation of entire chest wall, no crepitus, no localized rib tenderness and No rash Resp: Effort & Inspection: normal respiratory effort, able to speak in complete sentences, not labored and symmetric chest movement Auscultation: clear to auscultation bilaterally, no rales, no rhonchi, no wheezes and diminished lung sounds bilateral in the lower lung floyd Cardio: Jugular venous distension: no JVD Rate: tachycardic Rhythm: regular rhythm Heart sounds: no gallops, no murmurs and n
[2023-12-07 13:03] LABS: Influenza A QL RT-PCR Negative (Negative); Influenza B QL RT-PCR Negative (Negative); RSV RNA, RT-PCR Negative (Negative); SARS-CoV-2 RNA PCR Negative (Negative)
[2023-12-07] MEDS: oxyCODONE/ACETAMINOPHEN (*CRX) 5-325 MG TABLET 1 TABLET PO ×2 (15:13→23:29)
[2023-12-07 15:20] LABS: Appearance Urine Clear (Clear); Bacteria Urine None Seen /hpf; Bilirubin Urine Negative (Negative); Blood Urine Non-Hemolyzed Trace (Negative); Color Urine Yellow (Yellow); Glucose Urine UA Negative (Negative); Ketones Urine Negative (Negative); Leukocyte Esterase Ur Negative LEU/UL (Negative); Nitrate Urine Negative (Negative); Non Pathogenic Casts 0-2; Protein Urine Negative (Negative); RBC Urine 0-2 /hpf (0-2); Squamous Epithelial Cell Urine None Seen /hpf (Few); WBC Urine 0-5 /hpf (0-3)
[2023-12-07 15:24] LABS: Add Urine Microscopic? YES; Specific Grav Ur 1.059 (1.001-1.035)
[2023-12-08 05:18] VITALS: BP 145/83; PULSE 86; RESP 18; TEMP 37; O2SAT 93
[2023-12-08] MEDS: FAMOTIDINE 20 MG TABLET PO (08:45)
[2023-12-08] MEDS: NICOTINE (*PBKC) 14 MG PATCH 1 PATCH TRANSDERM (08:45)
[2023-12-08] MEDS: lisinopriL 10 MG TABLET 30 MG PO (08:45)
[2023-12-08] MEDS: ENOXAPARIN 30 MG/0.3 ML SYRINGE SUB-Q (08:45)
[2023-12-08] MEDS: oxyCODONE/ACETAMINOPHEN (*CRX) 5-325 MG TABLET 1 TABLET PO (08:47)
[2023-12-08 12:29] VITALS: O2SAT 97
== END 2023-12-08 14:08 | disposition home or self-care (01) ==
LOC: ANHSURGERY 06:02 → ANH3MED 15:12
PROVIDERS: Nurse Practitioner Family; PCP Physician Assistant; Visit Provider Surgery
PROC: 8E0Y4CZ Robotic Assisted Procedure of Lower Extremity, Percutaneous Endoscopic Approach (ICD-10-PCS; CPT 49650; principal; 2023-12-04 08:00)
DX: K40.20 Bilateral inguinal hernia, without obstruction or gangrene, not specified as recurrent (principal); K66.0 Peritoneal adhesions (postprocedural) (postinfection); J98.11 Atelectasis; I10 Essential (primary) hypertension; F17.210 Nicotine dependence, cigarettes, uncomplicated; F12.90 Cannabis use, unspecified, uncomplicated; E66.9 Obesity, unspecified; Z68.39 Body mass index [BMI] 39.0-39.9, adult; Z79.891 Long term (current) use of opiate analgesic; Z79.1 Long term (current) use of non-steroidal anti-inflammatories (NSAID); J95.89 Other postprocedural complications and disorders of respiratory system, not elsewhere classified; Z98.890 Other specified postprocedural states; K44.9 Diaphragmatic hernia without obstruction or gangrene
CPT/HCPCS: 49650; S2900; 36415; 71275; 74177; 80048; 81001; 85027; 87637; A9270; C1781; J0690; J1100; J1170; J1650; J1741; J1885; J2250; J2405; J2704; J3010; J7030; J7120; Q9967

== ENCOUNTER 2024-02-14 09:14 | Outpatient (CLI) | payer OTHER, MEDICAID, SELFPAY ==
--- NOTE | ~2024-02-14 | XR_ITS ---
Right Knee Technique: AP, lateral, and sunrise views were obtained. Clinical History: Arthroplasty Findings: No acute fracture or dislocation seen. Right knee arthroplasty in place. Soft tissues are u nremarkable. No joint effusion is seen. Impression: No acute reality. Right knee arthroplasty. Reviewed, dictated and finalized at location . Impression: No acute reality. Right knee arthroplasty.
== END 2024-02-14 09:15 ==
PROVIDERS: PCP Physician Assistant; Visit Provider Physician Assistant
DX: Z96.651 Presence of right artificial knee joint (principal)
CPT/HCPCS: 73562

== ENCOUNTER 2025-02-21 19:43 | Emergency (ER) | payer MEDICAID, SELFPAY ==
--- NOTE | ~2025-02-21 | XR_ITS ---
CHEST RADIOGRAPH CLINICAL HISTORY: SOB/ MAIRA, RECENT FALL . . COMPARISON: 08/26/2023 TECHNIQUE: Single portable view of the chest. FINDINGS The cardiomediastinal silhouette is unremarkable. Multiple right-sided rib fractures are present. The left ribs are unremarkable. Bibasilar atelectasis is noted. IMPRESSION: Bibasilar atelectasis with multiple right-sided rib fractures, likely acute to subacute. Reviewed, dictated and finalized at location A.
--- NOTE | 2025-02-21 19:44 | ECG_ITS ---
Test Date: 2025-02-21 19:55:20 Measurements Intervals [place] Rate: 114 P: 52 [place]: 141 QRS: 33 QRSD: 98 T: 78 QT: 315 QTc: 435 Interpretive Statements SINUS TACHYCARDIA NONSPECIFIC T-WAVE ABNORMALITY- HIGH LATERAL LEADS BASELINE ARTIFACT- III, AVL, V1-V6 ABNORMAL ECG No previous ECG available for comparison Electronically Signed On 02-22-2025 06:21:48 CDT by Juan M Dasilva D.O.
[2025-02-21 20:06] VITALS: BP 161/101; PULSE 110; RESP 30; TEMP 36.7; O2SAT 99
--- NOTE | 2025-02-21 20:10 | PC.NURSE ---
Patient was sating 70% on RA when arriving to triage. Patient was placed on 5L NC and o2 sats were 79%. Patient instantly placed on 15 NonRebreather and is now sating at 99%. Patient states he is not having chest or abd pain at this time.
[2025-02-21] MEDS: IPRATROPIUM BR 0.02% INH SOLN 0.5 MG/2.5 ML VIAL 1 MG INHALATION (20:12)
[2025-02-21] MEDS: ALBUTEROL SULFATE NEB 2.5 MG/3 ML INH 15 MG INHALATION (20:12)
[2025-02-21 20:14] VITALS: PULSE 100; RESP 25
[2025-02-21 20:15] VITALS: BP 170/101; PULSE 114; RESP 18; TEMP 36.6; O2SAT 99
[2025-02-21 20:18] LABS: Basophils Absolute Auto 0.1 K/mm3 (0.0-0.1); Basophils Percent Auto 0.5 % (0.2-1.2); Eosinophils Percent Auto 0.2 % (0-4.4); Hematocrit 42.3 % (42.0-52.0); Hemoglobin 12.6 g/dL (14.0-18.0); Immature Granulocyte Absolute 0.08 K/mm3 (0.00-0.031); Immature Granulocyte Percent A 0.5 % (0-0.5); Lymphocytes Absolute Auto 1.26 K/mm3 (0.9-3.2); Lymphocytes Percent Auto 7.7 % (18.3-44.2); Mean Corpuscular HGB Conc 29.8 g/dl (32-36); Mean Corpuscular Hemoglobin 29.1 pg (26-34); Mean Corpuscular Volume 97.7 fl (80-100); Mean Platelet Volume 10.4 fl (7.4-10.4); Monocytes Absolute Auto 1.5 K/mm3 (0.1-0.6); Neutrophils Absolute Auto 13.5 K/mm3 (1.3-6.7); Neutrophils Percent Auto 82.1 % (45.5-73.1); Platelet Count Result 291 k/mm3 (150-375); Red Blood Count 4.33 M/mm3 (4.6-6.20); Red Cell Distribution Width 14.6 % (11.5-14.5); White Blood Count 16.4 K/mm3 (4.5-10.0)
[2025-02-21 20:27] LABS: Lactic Acid Reflex 1.6 mmol/L (0.7-2.0)
[2025-02-21 20:28] LABS: Alanine Aminotransferase 19 U/L (6-50); Albumin Level 3.8 g/dL (3.5-5.1); Alkaline Phosphatase 78 U/L (38-126); Anion Gap 7 mmol/L (4-12); Aspartate Amino Transferase 20 U/L (17-59); Bilirubin,Total 0.5 mg/dL (0.2-1.3); Blood Urea Nitrogen 26 mg/dL (9-20); Carbon Dioxide 31 mmol/L (22-30); Chloride 101 mmol/L (98-107); Estimated CRCL calculation 96 ml/min; Estimated Glomerular Filt Rate > 60; Glucose 208 mg/dL (65-110); Potassium 4.4 mmol/L (3.4-5.0); Sodium 139 mmol/L (137-145); Total Protein 8.1 g/dL (6.3-8.2)
--- OUTSIDE RECORDS SUMMARY | 2025-02-21 20:30 | XMS_ITS | Clinical Summary ---
Author Organization [facility] Address [address] [place] [id number] Care Team Providers Care Studio Operator Name Role Phone Unavailable Primary Care Provider Unavailabl e Social History Tobacco Use Types Packs/Day Years Used Date Smoking Tobacco: Never Assessed Sex and Gender Information Value Date Recorded Sex Assigned at Not on file Legal Sex Male 4:06 PM CDT Gender Identity Not on file Sexual Orientation Not on file Plan of Treatment Health Maintenance Due Date Last Done Comments Colorectal Cancer Screening Colonoscopy (10 Years) 1970 Annual Physical 1973 Hepatitis C 1988 DTaP, Tdap and Td Vaccines ( 1 - Tdap) 1989 Hepatitis B Vaccines (1 of 3 - 19+ 3-dose series) 1989 Pneumococcal Vaccine: 50+ Ye ars (1 of 1 - PCV) 2020 Zoster Vaccines (1 of 2) 2020 COVID-19 Vaccine (2023-2 5 season) 2024 Meningococcal B Vaccine Aged Out No l onger eligible based on patient's age to complete this topic Meningococcal Vaccine Aged Out No letha mikayla eligible based on patient's age to complete this topic RSV Immunizations Under 20 Months Aged Out No longer eligible based on patient's age to complete this topic
[2025-02-21 20:31] LABS: Hypochromasia 1+; Platelet Estimate Adequate (Adequate)
[2025-02-21] MEDS: methylPREDNISolone SOD SUCC 125 MG VIAL IV PUSH (20:35)
[2025-02-21] MEDS: cefTRIAXone 2 GM/NS 100 ML 2 GM/100 ML BAG IVPB (20:35)
[2025-02-21] MEDS: AZITHROMYCIN 250 MG TABLET 500 MG PO (20:36)
[2025-02-21 20:42] LABS: NT Pro B Type Natriuretic Pept 3110 pg/mL (19.9-100); Troponin I 0.099 ng/mL (0.000-0.034)
[2025-02-21 20:50] VITALS: PULSE 110; RESP 19
--- NOTE | 2025-02-21 21:03 | ED_ITS ---
HPI - SOB/Dyspnea General Chief Complaint: Shortness of Breath/Dyspnea Stated Complaint: SOB Time Seen by Provider: 02/21/25 19:55 History of Present Illness HPI Narrative: Patient fell about a week ago at home on his right side; a day later started having bad rib pain, then 2 days ago felt like he couldn't breathe so finally came in tonight. Related Data Home Medications ?Medication ?Instructions ?Recorded ?Confirmed ?Last Taken ?Type No Home Medications 01/09/24 01/09/24 Unknown History Allergies Allergy/AdvReac Type Severity Reaction Status Date / Time morphine Allergy Unknown Unknown Verified 01/06/24 10:46 tramadol AdvReac Unknown Nausea Verified 01/06/24 10:46 Review of Systems 2 Review of Systems: All systems reviewed & are unremarkable except as noted in HPI and below PMFSH Past Medical History Medical History (Updated 02/21/25 @ 21:55 by Yeimy Castellano MD) Hypertension Abdominal abscess Incarcerated hernia Surgical History Surgical History (Updated 01/06/24 @ 10:47 by YUKO Finney) Hx of inguinal hernia repair Laparoscopic adhesiolysis, robotic laparoscopic adhesiolysis, robotic repair bilateral inguinal hernias with mesh 12/04/23 History of incisional hernia repair Incarcerated incisional hernia repair with mesh 2014 Social History Social History Smoking packs per day: 0.5 Smoking cigarettes per day: 10.0 Years smoked: 35 Smoking pack-years: 17.50 Smoking status: Current every day smoker Tobacco type: cigarettes Second hand tobacco smoke exposure: Yes Alcohol intake: former Substance use: former Substance use type: marijuana Do You Feel Safe in your Home?: Yes Lack of Transportation: No Lack of Food: Never True Current Housing: I Have Housing Concerned About Future Housing: No Difficulty Paying Gas/Electric Bills: No Difficulty Paying for Meds: No Currently Unemployed: No Education: Grade School Difficulty w/ Childcare or Family Care: No Living arrangements: with family Occupation/Education: retired Spiritual care concerns: No Exam 2 Narrative: EXAMINATION OF ORGAN SYSTEMS/BODY AREAS: Constitutional: Vital signs per nursing GENERAL: Appears quite uncomfortable, dyspneic HEAD: Normal with no signs of head trauma. EYES: EOMI, conjunctiva normal ENT: Hearing grossly intact LUNGS: Labored respirations, for lung sounds especially on the right side, end expiratory wheezing HEART: Tachycardic ABD: [Soft], [nontender to palpation] EXT: Normal range of motion SKIN: [No rashes or lesions.] NEURO: [Alert and oriented x 3. No gross focal sensory or strength deficits.] PSYCH: Normal affect Course Vital Signs Vital signs: Vital Signs Temperature 98.0 F 02/21/25 20:06 Pulse Rate 110 H 02/21/25 20:06 Respiratory Rate 30 H 02/21/25 20:06 Blood Pressure 161/101 H 02/21/25 20:06 Pulse Oximetry 99 02/21/25 20:06 Oxygen Delivery Non-Rebreather Mask 02/21/25 20:06 Oxygen Flow Rate 15 02/21/25 20:06 Temperature 97.8 F 02/21/25 20:15 Pulse Rate 114 H 02/21/25 20:15 Respiratory Rate 18 02/21/25 20:15 Blood Pressure 170/101 H 02/21/25 20:15 Pulse Oximetry 99 02/21/25 20:15 Oxygen Delivery Non-Rebreather Mask 02/21/25 20:06 Oxygen Flow Rate 15 02/21/25 20:06 MDM - SOB/Dyspnea MDM Narrative Medical decision making narrative: Patient presents here after he fell a week ago with right rib pain now having shortness of breath, upon arrival he was found to be saturating in the high 60s on room air, immediately placed on oxygen, placed on monitors, IV placed and blood drawn, I did evaluate him and noted diminished breath sounds on the right, x-ray immediately obtained on my independent interpretation showing some rib fractures but no obvious signs of pneumothorax; also some opacities concerning for potential pulmonary contusion versus pneumonia. Oxygen improved to 96% on non-rebreather and with DuoNebs, however patient become quite claustrophobic with this and pulled it off. We did try therefore changing to high-flow nasal cannula. I did attempt obtaining a CT however patient again felt like he was going to pass out during transport/when lying flat, so this was canceled after discussion with [facility] ER Dr. Le who will get the CT when patient arrives in the ER there. He has accepted patient in transfer. At this point he is now more comfortable on the high-flow nasal cannula, saturating 95-96%, we did discuss potentially intubating him at this time and he would like to avoid this, I do feel he will likely be stable without intubation for the 10 minute air transfer to [facility]. EKG initially showing sinus tachycardia rate 114, IA 141, QRS 98, QTC [address] elevations or depressions or signs of acute ischemia or arrhythmia. Initial troponin elevated at 0.099 but BNP also elevated at 3000, I suspect likely from stress/hypoxia. White count elevated at 16, I have started patient on ceftriaxone/azithromycin for presumed pneumonia. Lab Data 02/21/25 20:13 02/21/25 20:13 Labs: Lab Results 02/21/25 Range/Units 20:13 WBC 16.4 H (4.5-10.0) K/mm3 RBC 4.33 L (4.6-6.20) M/mm3 Hgb 12.6 L (14.0-18.0) g/dL Hct 42.3 (42.0-52.0) % MCV 97.7 (80-100) fl MCH 29.1 (26-34) pg MCHC 29.8 L (32-36) g/dl RDW 14.6 H (11.5-14.5) % Plt Count 291 (150-375) k/mm3 MPV 10.4 (7.4-10.4) fl Immature Gran % (Auto) 0.5 (0-0.5) % Neut % (Auto) 82.1 H (45.5-73.1) % Lymph % (Auto) 7.7 L (18.3-44.2) % Snyder % (Auto) 9.0 H (2.6-8.5) % Eos % (Auto) 0.2 (0-4.4) % Baso % (Auto) 0.5 (0.2-1.2) % Lymph # (Auto) 1.26 (0.9-3.2) K/mm3 Snyder # (Auto) 1.5 H (0.1-0.6) K/mm3 Eos # (Auto) 0.0 (0-0.3) K/mm3 Baso # (Auto) 0.1 (0.0-0.1) K/mm3 Abs Immat Gran (auto) 0.08 H (0.00-0.031) K/mm3 Absolute Neuts (auto) 13.5 H (1.3-6.7) K/mm3 Absolute Nucleated RBC 0.000 (0.0-0.012) K/mm3 Band Neutrophils % Not Reportable Nucleated RBC % 0.0 (0.0-0.2) % Platelet Estimate Adequate (Adequate) Hypochromasia 1+ Schistocytes Not Reportable Sodium 139 (137-145) mmol/L Potassium 4.4 (3.4-5.0) mmol/L Chloride 101 (98-107) mmol/L Carbon Dioxide 31 H (22-30) mmol/L Anion Gap 7 (4-12) mmol/L BUN 26 H D (9-20) mg/dL Creatinine 1.10 (0.7-1.3) mg/dL Estim Creat Clear Calc 96 ml/min Estimated GFR > 60 (59 - ) Glucose 208 H (65-110) mg/dL Lactic Acid 1.6 (0.7-2.0) mmol/L Calcium 9.0 (8.4-10.2) mg/dL Total Bilirubin 0.5 (0.2-1.3) mg/dL AST 20 (17-59) U/L ALT 19 (6-50) U/L Alkaline Phosphatase 78 (38-126) U/L Troponin I 0.099 H* (0.000-0.034) ng/mL NT-Pro-B Natriuret Pep 3110 H (19.9-100) pg/mL Total Protein 8.1 (6.3-8.2) g/dL Albumin 3.8 (3.5-5.1) g/dL Critical Care Time Critical Care Time Critical Care Time: Yes Total Critical Care Time: 61 Discharge Plan Discharge Clinical Impression: Acute exacerbation of chronic bronchitis, Fracture, ribs, Pneumonia, Acute and chronic respiratory failure with hypoxia, Elevated troponin Patient Disposition: Acute Care Hospital Condition: Critical Patient Language: Turkish Prescriptions: No Action No Home Medications Follow-up/Referrals: Guanako,REGI Kang [Primary Care Provider] -
[2025-02-21 21:51] VITALS: O2SAT 95
--- NOTE | 2025-02-21 22:23 | PCRCNOTE ---
Cont nebulizer given at 2011 by RT was stopped early by Dr Castellano due to the patient vomiting. Treatment was not continued.
== END 2025-02-21 22:22 | disposition short-term general hospital (02) ==
PROVIDERS: Emergency Provider Emergency Medicine; PCP Physician Assistant
DX: S22.41XA Multiple fractures of ribs, right side, initial encounter for closed fracture (principal); J18.9 Pneumonia, unspecified organism; J96.21 Acute and chronic respiratory failure with hypoxia; J42 Unspecified chronic bronchitis; R79.89 Other specified abnormal findings of blood chemistry; I10 Essential (primary) hypertension; F17.210 Nicotine dependence, cigarettes, uncomplicated; R00.0 Tachycardia, unspecified; R94.31 Abnormal electrocardiogram [ECG] [EKG]
CPT/HCPCS: 36415; 71045; 80053; 83605; 83880; 84484; 85025; 87040; 93005; 94640; 96361; 96365; 96375; 99291; A9270; J0696; J2405; J2919

== ENCOUNTER 2025-04-23 15:22 | Outpatient (CLI) | payer OTHER, SELFPAY ==
--- NOTE | ~2025-04-23 | US_ITS ---
EXAMINATION:US venous doppler LE LT INDICATION:Left lower extremity pain TECHNIQUE: Multiple grayscale, color flow and Doppler images of the left lower extremity deep venous systems were obtained and reviewed. COMPARISON:No prior studies for comparison. FINDINGS: The common femoral, superficial femoral and popliteal veins demonstrate normal respiratory variation, augmentation and compressibility. Color flow is also seen within the posterior tibial, pe roneal, greater saphenous and profunda veins. IMPRESSION: 1: No lower extremity deep venous thrombosis. Reviewed, dictated and finalized at location A.
--- OUTSIDE RECORDS SUMMARY | 2025-04-23 15:25 | XMS_ITS | Clinical Summary ---
Author Organization [facility] Address [address] [place] [id number] Care Team Providers Care Car Oiler Name Role Phone Unavailable Primary Care Provider [...]
== END 2025-04-23 15:23 | disposition home or self-care (01) ==
PROVIDERS: PCP Physician Assistant; Visit Provider Physician Assistant
DX: M79.662 Pain in left lower leg (principal)
CPT/HCPCS: 93971

== ENCOUNTER 2025-08-13 14:32 | Outpatient (CLI) | payer OTHER, SELFPAY ==
--- NOTE | ~2025-08-13 | XR_ITS ---
XR lumbar spine 2-3V Indication: CHRONIC LOW BACK PAIN Comparison: None Findings: Moderate loss of vertebral height throughout. No acute fracture grade I anterolisthesis of L5 on S1, no additional areas of subluxation. Moderate to severe loss of disc height throughout. Soft tissues unremarkable Impression: No acute abnormality. Reviewed, dictated and finalized at location [facility] [employer] Impression: No acute abnormality.
== END 2025-08-13 14:33 | disposition home or self-care (01) ==
PROVIDERS: PCP Physician Assistant; Visit Provider Physician Assistant
DX: M54.59 Other low back pain (principal); G89.29 Other chronic pain
CPT/HCPCS: 72100